=== PATIENT | male | born 1990 | race Two or more races ===

== ENCOUNTER 2024-10-25 03:37 | Emergency (ER) | payer MEDICAID, SELFPAY ==
--- NOTE | 2024-10-25 03:48 | EKG_ITS ---
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
[2024-10-25 04:18] VITALS: BP 165/98; PULSE 100; RESP 18; TEMP 36.7; O2SAT 98
--- NOTE | 2024-10-25 05:13 | XR_ITS ---
Examination: CT abdomen and pelvis without contrast. Coronal 3-D reconstructions. Sagittal 2-D reconstructions. Date and time of exam:October 25, 2024 at 0538 hrs. Indications: Onset left flank pain today CTDI: vol (mGy): 9.80 DLP: (mGycm): 606 Technique: Axial images of the abdomen have been obtained, 3 mm slice thickness Intravenous contrast material has not been administered. Low dose protocols were performed. One or more of the following dose reduction techniques were used; automated exposure control, adjustment of the mA and/or KV according to patient size, use of iterative reconstruction technique. Findings: Fatty infiltration throughout the liver No gallstones Mild splenomegaly AP dimension 13 cm No pancreatic or adrenal mass. Minimal left perinephric stranding No renal or ureteral calculi, no hydronephrosis Aorta normal size Normal appendix No bowel obstruction or diverticulitis No bladder mass or bladder calculi Osseous structures are intact Impression: Mild splenomegaly Minimal left perinephric stranding, consider left urinary tract infection No renal or ureteral calculi, no hydronephrosis Normal appendix No bladder mass or bladder calculi
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
--- NOTE | 2024-10-25 05:17 | XR_ITS ---
Examination: AP chest single view Technique: Portable AP sitting chest single view Exam date and time: October 25, 2024 0532 hrs. Comparison February 04, 2023 Indications: Chest pain today. Findings: Normal heart size Lungs are clear. The osseous structures are intact Mild vascular congestion Impression: Mild vascular congestion
[2024-10-25 06:19] LABS: Basophils % (Auto) 1 % (0-2.5); Eosinophils # (Auto) 0.1 Thou/mm3 (0.0-0.5); Eosinophils % (Auto) 1 % (0-10); Hematocrit 51.9 % (41.0-53.0); Hemoglobin 18.9 g/dL (13.5-16.0); Immature Granulocytes % (Auto) 0 % (0-0); Immature Granulocytes Auto 0.02 Thou/mm3 (0.00-0.00); Lymphocytes # (Auto) 2.5 Thou/mm3 (1.0-4.8); Lymphocytes % (Auto) 30 % (10-50); Mean Corpuscular HGB Conc 36.4 g/dl (31.0-37.0); Mean Corpuscular Hemoglobin 30.7 pg (25.0-35.0); Mean Corpuscular Volume 84 fL (80-100); Monocytes # (Auto) 0.7 Thou/mm3 (0.0-0.8); Monocytes % (Auto) 8 % (0-12); Neutrophils % (Auto) 60 % (37-80); Nucleated Red Blood Cell % 0 /100 WBC (0); Platelet Count 173 Thou/mm3 (140-440); RDW Standard Deviation 40.8 fL (35.1-43.9); Red Blood Count 6.16 Miln/mm3 (4.50-5.90); White Blood Count 8.4 Thou/mm3 (3.8-10.6)
--- NOTE | 2024-10-25 06:31 | PRELIM_ITS ---
CT scan of the abdomen and pelvis without intravenous contrast (axial sections with sagittal and coronal reformats) October 25, 2024 0538 hours Clinical History: Right flank pain Reference is made to the prior report dated February 26, 2019. Findings: There is a 13mm nodule in the right lower lobe ( coronal image 121/165). Fatty infiltration of the liver is noted. Nonspecific perinephric fat stranding is noted bilaterally. The gallbladder, pancreas, spleen and adrenals are unremarkable on this noncontrast study. No evidence of bowel obstruction. The appendix is within normal limits (coronal images 85-98/165). There is no mesenteric or retroperitoneal adenopathy. A small fat-containing umbilical hernia is present. The urinary bladder is unremarkable. There is no free fluid or free air. Degenerative changes are noted in the form of multilevel marginal osteophytes, decreased disc spaces and facet arthropathy. Impression: No evidence of renal/ureteric calculus or hydroureteronephrosis. 13mm nodule in the right lower lobe. Recommend clinical correlation and follow- up. Other findings as described above. Report Electronically Signed By: Tracy Hallman 10/25/2024 6:31:02 AM [EST]
[2024-10-25 06:42] LABS: Alanine Aminotransferase 37 U/L (10-49); Albumin, Serum 4.6 gm/dL (3.5-5.0); Albumin/Globulin Ratio 1.5 (1.2-2.2); Alkaline Phosphatase 124 U/L (46-116); Anion Gap 10 (7-16); Aspartate Amino Transferase 27 U/L (0-34); BUN/Creatinine Ratio 14 Ratio (12-20); Bilirubin,Total 0.9 mg/dL (0.3-1.2); Blood Urea Nitrogen 11 mg/dL (9-23); Calcium 8.9 mg/dL (8.3-10.6); Calcium (Corrected) 8.9 mg/dL (8.5-10.1); Carbon Dioxide 23.4 mMol/L (20.0-31.0); Chloride 102 mMol/L (98-107); Creatinine (Component) 0.8 mg/dL (0.6-1.3); Glucose 202 mg/dL (74-106); Lipase 55 U/L (12-53); Magnesium 1.9 mg/dL (1.6-2.6); Osmolality,Calculated 275 (275-295); Potassium 3.8 mMol/L (3.4-5.1); Sodium 135 mMol/L (136-145); Total Protein 7.6 gm/dL (5.7-8.2); Troponin I < 0.020 ng/mL (0.0-0.045); eGFR > 60 See Note
[2024-10-25] MEDS: KETOROLAC INJ 30 MG/ML VIAL IVP (06:43)
[2024-10-25] MEDS: ACETAMINOPHEN IVPB 1,000 MG/100 ML VIAL 250 MG IV (06:47)
[2024-10-25] MEDS: SODIUM CHLORIDE 0.9% 1000 ML 1,000 ML 999 ML IV ×2 (06:47→12:07)
[2024-10-25 06:51] VITALS: BP 157/96; PULSE 97; RESP 18; O2SAT 95
--- NOTE | 2024-10-25 07:23 | PD.EDADDENDU ---
Emergency Room Addendum Addendum Narrative: 0600: Care assumed from Dr. Antoine, the previous shift emergency physician. Past medical, surgical, social and family history reviewed. Vitals and home medications reviewed. I will assume the care of the patient at this time pending CT abdomen pelvis report, labs, and final disposition. Please refer to the emergency department record for history and examination from initial visit.?The following addendum documentation note is intended to reflect any pending information, findings, or radiology results not included in the patient?s initial chart. 1008: We reviewed todays results with the patient and at bedside. At this time reports pain to the right side of chest and right side of back although is improved from initial presentation. Patient received Toradol and 1g of Tylenol at 06:47 this morning. On my examination, there is right chest wall edema and tenderness to palpation. 1355: Patient remains clinically stable throughout the emergency department visit. We reviewed all the results, analysis, and treatment plans. Patient is amenable to discharge. Strict return precautions were outlined. Patient was discharged in stable condition. RADIOLOGY Ordering Physician: Idris Antoine MD Date of Service: 10/25/24 Procedure(s): CT abdomen pelvis [facility] Accession Number(s): [id number] cc: Aurelia Ambrosio PA-C; Lester Alston MD; Idris Antoine MD~ Examination: CT abdomen and pelvis without contrast. Coronal 3-D reconstructions. Sagittal 2-D reconstructions. Date and time of exam:October 25, 2024 at 0538 hrs. Indications: Onset left flank pain today CTDI: vol (mGy): 9.80 DLP: (mGycm): 606 Technique: Axial images of the abdomen have been obtained, 3 mm slice thickness Intravenous contrast material has not been administered. Low dose protocols were performed. One or more of the following dose reduction techniques were used; automated exposure control, adjustment of the mA and/or KV according to patient size, use of iterative reconstruction technique. Findings: Fatty infiltration throughout the liver No gallstones Mild splenomegaly AP dimension 13 cm No pancreatic or adrenal mass. Minimal left perinephric stranding No renal or ureteral calculi, no hydronephrosis Aorta normal size Normal appendix No bowel obstruction or diverticulitis No bladder mass or bladder calculi Osseous structures are intact Impression: Mild splenomegaly Minimal left perinephric stranding, consider left urinary tract infection No renal or ureteral calculi, no hydronephrosis Normal appendix No bladder mass or bladder calculi Dictated By:Lester Alston MD Signed By:<Electronically signed by Lester Alston MD in OV>10/25/24 0710 Ordering Physician: Idris Antoine MD Date of Service: 10/25/24 Procedure(s): XR chest 1V portable Accession Number(s): [id number] cc: Aurelia Ambrosio PA-C; Lester Alston MD; Idris Antoine MD~ Examination: AP chest single view Technique: Portable AP sitting chest single view Exam date and time: October 25, 2024 0532 hrs. Comparison February 04, 2023 Indications: Chest pain today. Findings: Normal heart size Lungs are clear. The osseous structures are intact Mild vascular congestion Impression: Mild vascular congestion Dictated By: Lester Alston MD Signed By: <Electronically signed by Lester Alston MD in OV> 10/25/24 0738 Ordering Physician: Jaylene Dougherty MD Date of Service: 10/25/24 Procedure(s): US breast RT limited Accession Number(s): [id number] cc: Aurelia Ambrosio PA-C; Lester Alston MD; Jaylene Dougherty MD~ Examination: Breast ultrasound limited, right complete Exam date and time: October 25, 2024 1144 hours Indications : Right arm axilla and lateral chest finding beginning 4 days ago Technique: Real time lauren scale ultrasonographic imaging of the breast , retroarelar and axillary region. Findings: No edema cystic or solid mass IMPRESSION: No edema cystic or solid mass Dictated By: Lester Alston MD Signed By: <Electronically signed by Lester Alston MD in OV> 10/25/24 1316 Ordering Physician: Jaylene Dougherty MD Date of Service: 10/25/24 Procedure(s): US venous doppler UE RT Accession Number(s): [id number] cc: Aurelia Ambrosio PA-C; Lester Alston MD; Jaylene Dougherty MD~ Examination: Duplex scan of the upper extremity, unilateral right complete Date and time of exam: October 25, 2024 11:22 AM INDICATIONS: Right arm axillary and chest swelling beginning 5 days ago Technique: Duplex scan of the extremity veins using B-mode/grayscale imaging and Doppler spectral analysis and color flow Attention is directed to internal echogenicity, compression and augmentation involving these veins, color flow assessment, spectral analysis Findings: Major deep venous structures in the extremity demonstrate normal course and caliber. There is no evidence of deep vein thrombosis. Normal color flow and spectral analysis Impression: Negative for DVT.. Dictated By: Lester Alston MD Signed By: <Electronically signed by Lester Alston MD in OV> 10/25/24 1312
[2024-10-25 07:38] VITALS: BP 157/86; PULSE 98; RESP 20; TEMP 36.8; O2SAT 96
[2024-10-25 07:50] VITALS: PULSE 103
[2024-10-25 08:00] VITALS: BP 152/86; PULSE 89; RESP 20; TEMP 36.8; O2SAT 98
[2024-10-25 08:11] LABS: Collection Type, Urine Clean Catch
[2024-10-25 08:35] LABS: Amphetamine/Methamp Scrn,U Negative (Negative); Barbiturate Screen,Urine Negative (Negative); Benzodiazepines Screen,Urine Negative (Negative); Benzoylecgonine Screen, Ur Negative (Negative); Fentanyl Screen,Urine Negative (Negative); Opiate Screen,Urine Negative (Negative); THC Screen,Urine Positive (Negative)
[2024-10-25 08:39] LABS: Bilirubin,Urine Negative (Negative); Blood,Urine Negative (Negative); Clarity,Urine Clear (Clear/Hazy); Color,Urine Lt-Yellow (Lt Yel-Yel); Culture Indicated,Urine Not Indicated; Glucose, Urine 4+ (Negative); Ketones,Urine Negative (Negative); Leukocyte Esterase,Urine Negative (Negative); Nitrite,Urine Negative (Negative); PH,Urine 6.5 (5.0-7.0); Protein,Urine Negative (Neg - Trace); RBC,Urine 2 /hpf (0-3); Specific Gravity,Urine 1.037 (1.001-1.035); Squamous Epithelial Cell,Urine 1 /hpf (0-5); Urobilinogen,Urine Negative mg/dL (0.0-1.0); WBC,Urine 1 /hpf (0-5)
[2024-10-25 10:00] VITALS: BP 170/104; PULSE 99; RESP 15; TEMP 36.8; O2SAT 96
--- NOTE | 2024-10-25 10:35 | XR_ITS ---
Examination: Breast ultrasound limited, right complete Exam date and time: October 25, 2024 1144 hours Indications : Right arm axilla and lateral chest finding beginning 4 days ago Technique: Real time lauren scale ultrasonographic imaging of the breast , retroarelar and axillary region. Findings: No edema cystic or solid mass IMPRESSION: No edema cystic or solid mass
--- NOTE | 2024-10-25 10:35 | XR_ITS ---
Examination: Duplex scan of the upper extremity, unilateral right complete Date and time of exam: October 25, 2024 11:22 AM INDICATIONS: Right arm axillary and chest swelling beginning 5 days ago Technique: Duplex scan of the extremity veins using B-mode/grayscale imaging and Doppler spectral analysis and color flow Attention is directed to internal echogenicity, compression and augmentation involving these veins, color flow assessment, spectral analysis Findings: Major deep venous structures in the extremity demonstrate normal course and caliber. There is no evidence of deep vein thrombosis. Normal color flow and spectral analysis Impression: Negative for DVT..
[2024-10-25] MEDS: ONDANSETRON INJ 2 MG/ML INJ 2 ML 4 MG IV (11:13)
[2024-10-25] MEDS: MORPHINE SULF INJ 10 MG/ML VIAL 5 MG IVP (11:18)
[2024-10-25 12:27] LABS: Sed Rate (ESR) 16 mm/hr (0-15)
[2024-10-25 13:19] LABS: D-Dimer < 250 ng/mL (<600)
== END 2024-10-25 14:27 | disposition home or self-care (01) ==
PROVIDERS: Emergency Medicine; Emergency Provider Emergency Medicine; PCP Physician Assistant Medical
DX: R07.89 Other chest pain (principal); R16.1 Splenomegaly, not elsewhere classified; R09.89 Other specified symptoms and signs involving the circulatory and respiratory systems; R22.2 Localized swelling, mass and lump, trunk; R00.0 Tachycardia, unspecified; R22.31 Localized swelling, mass and lump, right upper limb
CPT/HCPCS: 36415; 71045; 74176; 76642; 80053; 80307; 81001; 83690; 83735; 84484; 85025; 85379; 85652; 93005; 93971; 96361; 96365; 99284; J0131; J1885; J2270; J2405; J7030

== ENCOUNTER 2025-03-17 11:07 | Emergency (ER) | payer MEDICAID, SELFPAY ==
[2025-03-17 11:07] VITALS: BMI 29.9
--- NOTE | 2025-03-17 11:11 | EKG_ITS ---
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
--- NOTE | 2025-03-17 11:20 | XR_ITS ---
Examination: PA lateral chest 2 views TECHNIQUE: Upright PA lateral chest 2 views Date and time: March 17, 2025 1156 hours INDICATIONS: Chest pain today. FINDINGS: Normal heart size. Lungs are clear. The osseous structures are intact IMPRESSION: No active disease
--- NOTE | 2025-03-17 11:20 | PD.EDRME ---
Rapid Medical Screening Exam RME Arrival date/time: 03/17/25 11:07 34-year-old male with no known medical history presents to the emergency room with a chief complaint of 10 out of 10 right-sided sternal chest pain that radiates up his right neck x 30 minutes I have greeted and performed a focused initial assessment of this patient. A comprehensive ED assessment and evaluation of the patient, analysis of all test results, and completion of the medical decision making process will be conducted by additional ED providers. Chief Complaint: Shortness of Breath/Dyspnea Vital signs reviewed by provider: Yes
[2025-03-17 11:22] VITALS: BP 168/100; BP 168/111; PULSE 117; RESP 18; TEMP 36.8; O2SAT 97
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
[2025-03-17 12:18] LABS: Basophils # (Auto) 0.0 Thou/mm3 (0.0-0.2); Basophils % (Auto) 0 % (0-2.5); Eosinophils # (Auto) 0.0 Thou/mm3 (0.0-0.5); Eosinophils % (Auto) 0 % (0-10); Hematocrit 52.6 % (41.0-53.0); Hemoglobin 18.6 g/dL (13.5-16.0); Immature Granulocytes Auto 0.05 Thou/mm3 (0.00-0.00); Lymphocytes # (Auto) 2.4 Thou/mm3 (1.0-4.8); Lymphocytes % (Auto) 22 % (10-50); Mean Corpuscular HGB Conc 35.4 g/dl (31.0-37.0); Mean Corpuscular Hemoglobin 30.4 pg (25.0-35.0); Mean Corpuscular Volume 86 fL (80-100); Monocytes # (Auto) 0.7 Thou/mm3 (0.0-0.8); Monocytes % (Auto) 6 % (0-12); Neutrophils # (Auto) 7.6 Thou/mm3 (1.8-7.7); Neutrophils % (Auto) 70 % (37-80); Nucleated Red Blood Cell # 0.00 Thou/mm3 (0.00-0.00); Nucleated Red Blood Cell % 0 /100 WBC (0); Platelet Count 171 Thou/mm3 (140-440); RDW Standard Deviation 40.8 fL (35.1-43.9); Red Blood Count 6.12 Miln/mm3 (4.50-5.90); White Blood Count 10.8 Thou/mm3 (3.8-10.6)
[2025-03-17 12:27] VITALS: BP 168/100; PULSE 117
[2025-03-17 12:31] LABS: INR 1.1 (0.9-1.3); Partial Thromboplastin Time 26.5 Seconds (22.0-36.0); Prothrombin Time 11.9 Seconds (9.0-12.2)
[2025-03-17 12:37] LABS: Alanine Aminotransferase 35 U/L (10-49); Albumin, Serum 4.6 gm/dL (3.5-5.0); Albumin/Globulin Ratio 1.5 (1.2-2.2); Alkaline Phosphatase 132 U/L (46-116); Anion Gap 12 (7-16); Aspartate Amino Transferase 27 U/L (0-34); BUN/Creatinine Ratio 11 Ratio (12-20); Bilirubin,Total 1.4 mg/dL (0.3-1.2); Blood Urea Nitrogen 9 mg/dL (9-23); Calcium 9.8 mg/dL (8.3-10.6); Calcium (Corrected) 9.8 mg/dL (8.5-10.1); Carbon Dioxide 24.5 mMol/L (20.0-31.0); Chloride 104 mMol/L (98-107); Creatinine (Component) 0.8 mg/dL (0.6-1.3); Estimated Creatinine Clearance 153.5 mL/min (>60); Globulin 3.0 gm/dL (2.3-3.5); Glucose 154 mg/dL (74-106); LDH (Lactate Dehydrogenase) 189 U/L (120-246); Magnesium 2.2 mg/dL (1.6-2.6); Osmolality,Calculated 281 (275-295); Potassium 3.8 mMol/L (3.4-5.1); Sodium 140 mMol/L (136-145); Total Protein 7.6 gm/dL (5.7-8.2); Troponin I < 0.020 ng/mL (0.0-0.045); eGFR > 60 See Note
[2025-03-17 12:50] LABS: Collection Type, Urine Clean Catch
[2025-03-17 12:51] LABS: B-Type Natriuretic Peptide 21 pg/mL (0-100)
[2025-03-17 13:26] LABS: Bilirubin,Urine Negative (Negative); Blood,Urine Negative (Negative); Budding Yeast,Urine Present; Clarity,Urine Clear (Clear/Hazy); Color,Urine Lt-Yellow (Lt Yel-Yel); Culture Indicated,Urine Not Indicated; Glucose, Urine 4+ (Negative); Ketones,Urine 1+ (Negative); Leukocyte Esterase,Urine Negative (Negative); Nitrite,Urine Negative (Negative); PH,Urine 6.0 (5.0-7.0); Protein,Urine Negative (Neg - Trace); RBC,Urine 1 /hpf (0-3); Specific Gravity,Urine 1.047 (1.001-1.035); Squamous Epithelial Cell,Urine < 1 /hpf (0-5); Urobilinogen,Urine Negative mg/dL (0.0-1.0); WBC,Urine < 1 /hpf (0-5)
[2025-03-17 13:54] VITALS: BP 154/100; BP 155/105; PULSE 105; RESP 19; O2SAT 98
[2025-03-17 13:56] LABS: Amphetamine/Methamp Scrn,U Negative (Negative); Barbiturate Screen,Urine Negative (Negative); Benzodiazepines Screen,Urine Negative (Negative); Benzoylecgonine Screen, Ur Negative (Negative); Fentanyl Screen,Urine Negative (Negative); Opiate Screen,Urine Negative (Negative); THC Screen,Urine Positive (Negative)
== END 2025-03-17 13:50 | disposition home or self-care (01) ==
PROVIDERS: Nurse Practitioner Family; Emergency Provider Emergency Medicine; PCP Physician Assistant Medical
DX: F41.9 Anxiety disorder, unspecified (principal); R07.2 Precordial pain; R00.0 Tachycardia, unspecified; E78.00 Pure hypercholesterolemia, unspecified; I10 Essential (primary) hypertension
CPT/HCPCS: 36415; 71046; 80053; 80307; 81001; 83615; 83735; 83880; 84484; 85025; 85610; 85730; 93005; 99283; A9270

== ENCOUNTER 2025-04-01 14:00 | Outpatient (RCR) | payer MEDICAID, SELFPAY ==
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
--- NOTE | 2025-03-18 15:21 | PT.ODAYNRPT ---
PT Outpatient Daily Note OP Daily Note Outpatient Physical Therapy Treatment Date: 03/18/25 Visit Reasons: RT SHOULDER PAIN Subjective: Pt's shoulder feels about the same. No change in overall pain. Objective: Please see flow chart for list of ther ex performed Assessment: tolerate exercises with minimal pain. post ice helped with pain and soreness Plan: Continue with PT Length of Time (minutes) of Treatment: 30 Minutes Procedure Charges Therapeutic Exercise 30 minutes: Yes
--- NOTE | 2025-03-21 14:00 | PT.ODAYNRPT ---
PT Outpatient Daily Note OP Daily Note Outpatient Physical Therapy Treatment Date: 03/21/25 Visit Reasons: RT SHOULDER PAIN Subjective: Pt continues to complaints of R shoudler pain. Objective: Please see flow sheet for ther ex list. Assessment: Interventions completed with minimal pain, applied cold pack at end of session. Plan: Continue with pOC. Length of Time (minutes) of Treatment: 30 Minutes Procedure Charges Therapeutic Exercise 30 minutes: Yes
--- NOTE | 2025-03-27 14:36 | PT.ODAYNRPT ---
PT Outpatient Daily Note OP Daily Note Outpatient Physical Therapy Treatment Date: 03/27/25 Visit Reasons: RT SHOULDER PAIN Subjective: Pt's arm feels fatigue and is dropping object now. No change in overall pain or symptoms. Objective: Please see flow chart for list of ther ex performed Assessment: no change in overall symptoms. Ice helped with pain and soreness post PT Plan: Continue with PT Length of Time (minutes) of Treatment: 30 Minutes Procedure Charges Therapeutic Exercise 30 minutes: Yes
--- NOTE | 2025-04-01 14:12 | PT.ODS1RPT ---
PT OP Progress/Discharge Note Date of Service: 04/01/25 Progress Note/DC Note Progress Note/Discharge Note: DC Note Patient Information Visit Reasons: RT SHOULDER PAIN Medical Diagnosis: M75.101 Treatment Dx #1: Right Shoulder Pain Treatment Dx #2: Right Shoulder Weakness Service Discharge Date: 04/01/25 Status Subjective: Pt's shoulder feels about the same and continues to have limitation with ADLs. Due to pain Pt still has difficulty with sleeping, chores, self care, lifting, and performing recreational activities. Objective: Right Shoulder AROM Flexion: 160 deg Abduction: 120 deg with pain External Rotation: 80 deg Internal Rotation: 70 deg Right Shoulder MMTs: grossly 3+/5 Right Scapula MMTs: grossly 3+/5 Palpation: TTP supraspinatus tendon Assessment: Pt continues to have right shoulder pain with mobility deficits leading to difficulty with ADLs. Pt will no longer benefit from physical therapy due to plateau towards goals. Pt advised to follow up with PCP for further consultation; thank you for your referrals. Plan: D/C home and follow up with PCP Procedure Charges Therapeutic Exercise 30 minutes: Yes
== END 2025-04-01 23:59 | disposition home or self-care (01) ==
LOC: CPTX 14:00
PROVIDERS: PCP Physician Assistant Medical; Referring Provider Physician Assistant Medical; Visit Provider Physician Assistant Medical
DX: M25.511 Pain in right shoulder (principal); R53.1 Weakness; G89.29 Other chronic pain; Z71.6 Tobacco abuse counseling; F17.210 Nicotine dependence, cigarettes, uncomplicated
CPT/HCPCS: 97110; 97162

== ENCOUNTER → 2025-06-13 | Outpatient (CLI) | payer MEDICAID, SELFPAY ==
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
== END | disposition home or self-care (01) ==
PROVIDERS: PCP Physician Assistant Medical; Referring Provider Physician Assistant Medical; Visit Provider Physician Assistant Medical
DX: S46.011A Strain of muscle(s) and tendon(s) of the rotator cuff of right shoulder, initial encounter (principal); V89.2XXA Person injured in unspecified motor-vehicle accident, traffic, initial encounter
CPT/HCPCS: 73221